=== PATIENT | male | born 1945 | race Caucasian/White ===

== ENCOUNTER 2016-11-08 15:27 | Emergency (ER) | payer MEDICAID ==
[~2016-11-08] VITALS: Ht 180.3 cm; Wt 83.5 kg
[2016-11-08] MEDS: ACYCLOVIR 400 MG TABLET PO ONE (15:54)
[2016-11-08] MEDS: GABAPENTIN 300 MG CAPSULE PO ONE (15:54)
--- NOTE | 2016-11-08 15:54 | NUR ---
mse completed, meds administered. pt d/c'd home, aci/rx x2 given. pt got dressed and amb ulated w/o diff/took all belongings.
[2016-11-08 15:56] VITALS: BP 105/78
[2016-11-08] MEDS ORDERED: GABAPENTIN 300 MG CAPSULE ONE (16:02)
[2016-11-08] MEDS ORDERED: ACYCLOVIR 400 MG TABLET ONE (16:03)
== END 2016-11-08 15:56 | disposition home or self-care (01) ==
LOC: ER 15:27
DX: B02.9 Zoster without complications (principal); I10 Essential (primary) hypertension
CPT/HCPCS: A4663